=== PATIENT | female | born 1970 | race Asian ===

== ENCOUNTER 2017-07-18 09:10 | Day surgery (SDC) | payer BC ==
[~2017-07-18] VITALS: Ht 154.9 cm; Wt 59.0 kg
[2017-07-18] MEDS ORDERED: LACTATED RINGERS 1,000 ML IV SCH (10:00)
[2017-07-18] MEDS ORDERED: LIDOCAINE 1%, 2ML SQ PRN (10:00)
[2017-07-18 10:02] VITALS: BP 143/89
[2017-07-18] MEDS ORDERED: METF500T27 PO (10:19)
[2017-07-18] MEDS ORDERED: SIMV20TA3 PO (10:19)
[2017-07-18] MEDS ORDERED: LEVO50TA5 PO (10:19)
[2017-07-18] MEDS ORDERED: LINA5TAB PO (10:19)
[2017-07-18] MEDS ORDERED: PLEASE ENTER HEIGHT AND WEIGHT MC SCH (10:30)
[2017-07-18 11:15] LABS: ASPARTATE AMINO TRANSFERASE 50 U/L (15-37); BLOOD UREA NITROGEN 13 mg/dL (7-18)
[2017-07-18] MEDS ORDERED: MIDAZOLAM 1 MG/ML, 2ML ONE (11:45)
[2017-07-18] MEDS ORDERED: FENTANYL PF 100 MCG/2ML ONE ×2 (11:45→14:44)
[2017-07-18] MEDS ORDERED: CEFAZOLIN 1,000 MG ONE (12:43)
[2017-07-18] MEDS ORDERED: SUCCINYLCHOLINE 20 MG/ML, 10ML ONE (12:43)
[2017-07-18] MEDS ORDERED: ROCURONIUM 10 MG/ML,10ML ONE (12:43)
[2017-07-18] MEDS ORDERED: PROPOFOL 10 MG/ML, 20ML ONE (12:43)
[2017-07-18] MEDS ORDERED: KETOROLAC 30 MG/1 ML ONE (12:43)
[2017-07-18] MEDS ORDERED: ONDANSETRON 2MG/ML, 2ML ONE ×2 (12:43)
[2017-07-18] MEDS ORDERED: CLINDAMYCIN 150 MG/ML, 6ML ONE (13:15)
[2017-07-18] MEDS ORDERED: MEPERIDINE/PF 25MG/0.5ML IVPush PRN (14:00)
[2017-07-18] MEDS ORDERED: HYDROcodone/APAP 7.5-325MG/15ML UDC PO PRN (14:00)
[2017-07-18] MEDS ORDERED: METOPROLOL 1 MG/ML, 5ML IV PRN (14:00)
[2017-07-18] MEDS ORDERED: EPHEDRINE 50 MG/ML, 1ML IVPush PRN (14:00)
[2017-07-18] MEDS ORDERED: DIAZEPAM 5 MG/ML, 2ML IVPush PRN (14:00)
[2017-07-18] MEDS ORDERED: LABETALOL 5MG/ML, 20ML IV PRN (14:00)
[2017-07-18] MEDS ORDERED: OXYcodone 5 MG/5 ML ORAL.SOL UDC PO PRN (14:00)
[2017-07-18] MEDS ORDERED: hydrALAzine 20 MG/ML, 1ML IV PRN (14:00)
[2017-07-18] MEDS ORDERED: ACETAMINOPHEN 325 MG TABLET PO PRN (14:00)
[2017-07-18] MEDS ORDERED: ALBUTEROL SULFATE 2.5 MG/3 ML NPPB PRN (14:00)
[2017-07-18] MEDS ORDERED: MIDAZOLAM 1 MG/ML, 2ML IV PRN (14:00)
[2017-07-18] MEDS ORDERED: PROMETHAZINE 25 MG/ML, 1ML IV PRN (14:00)
[2017-07-18] MEDS ORDERED: FENTANYL PF 100 MCG/2ML IV PRN (14:00)
[2017-07-18] MEDS ORDERED: HYDROmorphone 1 MG/ML, 1ML IV PRN (14:00)
[2017-07-18] MEDS ORDERED: ONDANSETRON 2MG/ML, 2ML IVPush PRN (14:00)
[2017-07-18] MEDS ORDERED: OXYcodone 5 MG/5 ML ORAL.SOL UDC ONE (14:31)
[2017-07-18] MEDS ORDERED: LABETALOL 5MG/ML, 20ML ONE (14:44)
== END 2017-07-18 16:50 ==
LOC: OUT 09:10
PROVIDERS: ATTEND Orthopaedic Surgery
DX: S43.431A Superior glenoid labrum lesion of right shoulder, initial encounter (principal); M75.111 Incomplete rotator cuff tear or rupture of right shoulder, not specified as traumatic; M19.011 Primary osteoarthritis, right shoulder; M75.41 Impingement syndrome of right shoulder; M75.21 Bicipital tendinitis, right shoulder; M75.51 Bursitis of right shoulder; M65.811 Other synovitis and tenosynovitis, right shoulder; X58.XXXA Exposure to other specified factors, initial encounter; Y93.89 Activity, other specified; Y92.89 Other specified places as the place of occurrence of the external cause; Y99.8 Other external cause status; E11.9 Type 2 diabetes mellitus without complications; E03.9 Hypothyroidism, unspecified
CPT/HCPCS: 23430; 29823; 29826; 36415; 80053; 82962; C1713; J0330; J0690; J1885; J2250; J2405; J2704; J3010; J3490; J7120